=== PATIENT | female | born 1945 | race Caucasian/White ===

== ENCOUNTER → 2017-10-21 09:23 | Outpatient (CLI) | payer MEDICARE, SELFPAY ==
[2017-10-21 09:50] LABS: Hematocrit 36.9 % (36-46); Hemoglobin 13.2 g/dL (12.0-16.0); Mean Corpuscular HGB Conc 35.6 % (30-36); Mean Corpuscular Hemoglobin 35.1 PG (26-34); Mean Corpuscular Volume 98.4 fL (80-100); Platelet Count 104 X10^3/uL (150-400); Red Blood Cell Count 3.75 X10^6/uL (4.0-5.2); Red Cell Distribution Width 14.5 % (11.6-14.8)
[2017-10-21 09:53] LABS: Add Manual Diff / Slide Review YES; White Blood Cell Count 1.1 X10^3/uL (4.5-11.0)
[2017-10-21 10:08] LABS: Neutrophils Absolute Manual 242 /uL (3000-5900); Nucleated Red Blood Cells 2 #/Diff; Total Cells Counted 100
[2017-10-21 10:09] LABS: Morphology Comment Normal Morphology
--- NOTE | 2017-10-21 14:28 | PC.NURSE ---
Addendum entered by Niki Falk R.N. 10/22/17 08:56: Kelli responded to hold Ibrance till further notice and see Dr Acuna sooner. Pt has labs/ scans then visit with Dr Acuna on November 10 which will help determine effectiveness of Ibrance and continuation.Reviewed with Dr Acuna he would like to re-check CBC at what would be the beginning of the next cycle which would be October 30 a Thursday so November 02Thursday.Pt will see Dr Acuna the following week for full evaluation. Pt informed of plan and aware of neutropenia and precautions. Original Note: critical value noted and placed on Kelli's desk for review. Pt notified of critical result wbc 1.1 and is awaiting a return call with the plan. Question being: she is currently on Ibrance and has 3 days left on this cycle. Continue or discontinue? gcsf? Awaiting Kelli's input.
== END ==
PROVIDERS: Family Provider Family Medicine; PCP Family Medicine; Visit Provider Nurse Practitioner Gerontology
DX: C50.912 Malignant neoplasm of unspecified site of left female breast (principal)
CPT/HCPCS: 36415; 85025

== ENCOUNTER → 2017-11-02 12:52 | Outpatient (CLI) | payer MEDICARE, SELFPAY ==
[2017-11-02 13:09] LABS: Mean Corpuscular HGB Conc 35.1 % (30-36); Mean Corpuscular Hemoglobin 34.5 PG (26-34); Mean Corpuscular Volume 98.3 fL (80-100); Platelet Count 126 X10^3/uL (150-400); Red Blood Cell Count 3.77 X10^6/uL (4.0-5.2); Red Cell Distribution Width 14.9 % (11.6-14.8)
[2017-11-02 13:12] LABS: Add Manual Diff / Slide Review YES; White Blood Cell Count 1.2 X10^3/uL (4.5-11.0)
[2017-11-02 13:35] LABS: Prothrombin Time 21.4 SECONDS (10.1-12.7)
[2017-11-02 13:54] LABS: Neutrophils Absolute Manual 264 /uL (3000-5900); Nucleated Red Blood Cells 4 #/Diff; Total Cells Counted 50
[2017-11-02 13:56] LABS: Basophilic Stippling 1+; Polychromasia 1+; Schistocytes 1+
--- NOTE | 2017-11-02 15:50 | PC.NURSE ---
WBC is 1.2 today.PAN WASHER would like to hold Ibrance-pt was due to re-start.Will have CBC Thursday and if labs ok to restart Kelli will prescribe new RX-pt only has [address] Acuna 11/10
== END ==
PROVIDERS: Family Provider Family Medicine; PCP Family Medicine; Visit Provider Internal Medicine Hematology & Oncology
DX: C50.912 Malignant neoplasm of unspecified site of left female breast (principal); I82.409 Acute embolism and thrombosis of unspecified deep veins of unspecified lower extremity; Z51.81 Encounter for therapeutic drug level monitoring; Z79.01 Long term (current) use of anticoagulants
CPT/HCPCS: 36415; 85025; 85610

== ENCOUNTER → 2017-11-06 | Outpatient (CLI) | payer MEDICARE, SELFPAY ==
--- NOTE | 2017-11-06 09:40 | DI.NM.S_ITS ---
PROCEDURE: IN BONE SCAN WHOLE BODY RADIOPHARMACEUTICAL: 20.4 mCi Tc-99m MDP IV. INDICATIONS: BREAST CANCER TECHNIQUE: Delayed whole-body scintigrams were obtained approximately 3-4 hours after intravenous injection of radiotracer. Anterior and posterior views were acquired from vertex to feet. COMPARISON: [facility], CT, CT CHEST ABD PEL W CON, 11/06/2017, 11:21. [facility], CT, CHEST/ABDOMEN WITH CONTRAST, 08/20/2016, 10:15. [facility], [place], BONE SCAN WHOLE BODY, 03/16/2017, 11:34. [facility], [place], BONE SCAN WHOLE BODY, 11/22/2015, 11:21. FINDINGS: No areas of relative intense radiotracer uptake identified that would be suspicious for metastatic disease. Increased radiotracer uptake noted in the shoulders bilaterally, the knees bilaterally in the mid feet compatible with osteoarthritis. Subtle foci of increased radiotracer uptake identified in the cervical spine stable compared to prior examinations likely related to degenerative changes. No abnormal radiotracer uptake associated with the known T5 lytic lesion. No abnormal soft tissue activity. Activity in the kidneys is normal and symmetric. IMPRESSION: 1. Stable examination compared to 03/16/2017. 2. No evidence of new or active osseous metastatic disease. 3. Osteoarthritis. Dictated by: Maggy Hurtado MD, PhD on 11/06/2017 at 15:46 Approved by: Maggy Hurtado MD, PhD on 11/06/2017 at 15:50
--- NOTE | 2017-11-06 10:47 | DI.CT.S_ITS ---
PROCEDURE: CT CHEST ABD PEL W CON INDICATIONS: BREAST CANCER TECHNIQUE: After the administration of oral and intravenous contrast, 5 mm thick sections acquired from the lung apices to the symphysis. 5 mm coronal and sagittal reformats were performed, with additional 7 mm coronal MIP reformats through the lungs. For radiation dose reduction, the following was used: automated exposure control, adjustment of mA and/or kV according to patient size. COMPARISON: [facility], CT, PE STUDY (CTA CHEST), 11/15/2015, 13:55. [facility], [place], [place] BONE SCAN WHOLE BODY, 11/06/2017, 13:50. [facility], CT, CHEST/ABDOMEN WITH CONTRAST, 08/20/2016, 10:15. [facility], CT, CHEST/ABD/PEL WITH CONTRAST, 04/23/2016, 10:49. FINDINGS: Image quality: Excellent. CHEST: Lungs and pleura: There is progressive decrease in size of multiple bilateral pulmonary nodules. A construction representative left lower lobe nodule measures 0.7 x 0.6 cm compared to 1.1 x 0.8 cm previously. A bandlike right perihilar opacity appears similar to the recent prior studies. No definite new mass lesions. No pleural effusions or pneumothorax. The trachea and central airways appear patent. Mediastinum: Heart size is normal. No pericardial effusion. Thoracic aorta and central pulmonary arteries are normal in size. Ill-defined right hilar soft tissue appears similar to the prior studies. A right paratracheal node measuring up to 1.2 cm in short axis also appear similar to the recent prior studies. Esophagus is normal in caliber. There is a small hiatal hernia. Chest wall: There is marked decrease in size of the previously identified left axillary mass which now measures up to 2.7 x 0.9 cm. There is internal high attenuation compatible with indistinct calcification. ABDOMEN: Solid organs: Liver is normal in size and enhancement. Gallbladder is distended without calcified gallstones. Biliary system is non dilated. Pancreas enhances normally. Spleen is normal in size and enhancement. No adrenal nodules. Kidneys demonstrate normal size and enhancement, without hydronephrosis. Peritoneum and bowel: There is a curvilinear lucency along the gastric wall anteriorly consistent with gas bubble artifact. Bowel loops demonstrate normal wall thickness and caliber. There is colonic diverticulosis without acute diverticulitis. No free fluid or air. Nodes and vessels: No retroperitoneal or mesenteric adenopathy by size criteria. Aorta and inferior vena cava are normal in size. Miscellaneous: No ventral hernias. PELVIS: Genitourinary: Bladder wall thickness is normal. There are multiple calcified fibroids redemonstrated within the uterus. Miscellaneous: No inguinal hernias or adenopathy. Bones: A lytic lesion is redemonstrated within the T5 vertebral body involving the left neuroforamen. There are increased sclerotic margins and progressive decrease in size of the associated soft tissue mass which now measures approximately 2.0 x 1.3 cm in transverse dimension. No vertebral body compression fractures. IMPRESSION: 1. Progressive decrease in size of multiple bilateral pulmonary nodules and T5 vertebral body mass as well as marked decrease in size of a left axillary mass compatible with response to therapy. 2. Stable right hilar soft tissue and right paratracheal lymph node compared to recent prior studies. 3. No definite evidence of new metastatic disease. Dictated by: Felice Givens M.D. on 11/06/2017 at 14:54 Approved by: Felice Givens M.D. on 11/06/2017 at 15:30
== END ==
LOC: RAD 09:38
PROVIDERS: Family Provider Family Medicine; PCP Family Medicine; Visit Provider Internal Medicine Hematology & Oncology
DX: C50.912 Malignant neoplasm of unspecified site of left female breast (principal); Z53.9 Procedure and treatment not carried out, unspecified reason
CPT/HCPCS: 71260; 74177; 78306; A9503; Q9967

== ENCOUNTER → 2017-11-17 09:17 | Outpatient (CLI) | payer MEDICARE, SELFPAY ==
[2017-11-17 09:36] LABS: Hematocrit 36.4 % (36-46); Hemoglobin 12.5 g/dL (12.0-16.0); Mean Corpuscular HGB Conc 34.3 % (30-36); Mean Corpuscular Hemoglobin 34.2 PG (26-34); Mean Corpuscular Volume 99.8 fL (80-100); Platelet Count 144 X10^3/uL (150-400); Red Blood Cell Count 3.64 X10^6/uL (4.0-5.2)
[2017-11-17 09:38] LABS: Add Manual Diff / Slide Review YES; White Blood Cell Count 1.5 X10^3/uL (4.5-11.0)
--- NOTE | 2017-11-17 09:38 | PC.NURSE ---
cv WBC 1.5 per [facility] in Lab. Triage notified
[2017-11-17 09:57] LABS: Neutrophils Absolute Manual 540 /uL (3000-5900); Total Cells Counted 100
[2017-11-17 09:58] LABS: Anisocytosis 2+
--- NOTE | 2017-11-17 11:04 | PC.NURSE ---
pt remains neutropenic with WBC of 1.5 and ANC of 540. Dr Acuna notified. Instructed pt to hold Ibrance. Recheck CBC in about 2 weeks. Once ANC is >1000, pt may resume Ibrance but at a lower dose of 100 mg PO daily.
== END ==
PROVIDERS: Family Provider Family Medicine; PCP Family Medicine; Visit Provider Internal Medicine Hematology & Oncology
DX: C50.912 Malignant neoplasm of unspecified site of left female breast (principal)
CPT/HCPCS: 36415; 85025

== ENCOUNTER → 2017-12-01 09:31 | Outpatient (CLI) | payer MEDICARE, SELFPAY ==
[2017-12-01 09:55] LABS: Hematocrit 35.5 % (36-46); Hemoglobin 12.3 g/dL (12.0-16.0); Mean Corpuscular HGB Conc 34.6 % (30-36); Mean Corpuscular Volume 98.2 fL (80-100); Platelet Count 123 X10^3/uL (150-400); Red Blood Cell Count 3.62 X10^6/uL (4.0-5.2)
[2017-12-01 09:58] LABS: Add Manual Diff / Slide Review YES; White Blood Cell Count 1.8 X10^3/uL (4.5-11.0)
[2017-12-01 10:00] LABS: INR 2.3 (0.9-1.3); Prothrombin Time 24.9 SECONDS (10.1-12.7)
--- NOTE | 2017-12-01 10:08 | PC.NURSE ---
Critical lab result WBC 1.8 received from lab. pediatric psychiatrist aware.
[2017-12-01 10:45] LABS: Neutrophils Absolute Manual 432 /uL (3000-5900); Total Cells Counted 50
[2017-12-01 10:51] LABS: Anisocytosis 1+
[2017-12-01 10:52] LABS: Polychromasia 1+
== END ==
PROVIDERS: Family Provider Family Medicine; PCP Family Medicine; Visit Provider Internal Medicine Hematology & Oncology
DX: C50.912 Malignant neoplasm of unspecified site of left female breast (principal); I82.409 Acute embolism and thrombosis of unspecified deep veins of unspecified lower extremity; Z79.01 Long term (current) use of anticoagulants
CPT/HCPCS: 36415; 85025; 85610

== ENCOUNTER → 2017-12-22 08:52 | Outpatient (CLI) | payer MEDICARE, SELFPAY ==
[2017-12-22 09:36] LABS: Hematocrit 31.4 % (36-46); Hemoglobin 10.9 g/dL (12.0-16.0); Mean Corpuscular HGB Conc 34.7 % (30-36); Mean Corpuscular Hemoglobin 33.5 PG (26-34); Mean Corpuscular Volume 96.5 fL (80-100); Red Blood Cell Count 3.26 X10^6/uL (4.0-5.2); Red Cell Distribution Width 14.9 % (11.6-14.8); White Blood Cell Count 11.2 X10^3/uL (4.5-11.0)
[2017-12-22 09:38] LABS: Add Manual Diff / Slide Review YES
[2017-12-22 09:39] LABS: Platelet Count 43 X10^3/uL (150-400)
--- NOTE | 2017-12-22 10:17 | PC.NURSE ---
Plt count 43. Pt is on day 15 of her 21 day cycle. Kelli would like pt to stop this cycle. She has labs and a provider visit around the time she is to restart her next cycle of Ibrance. Pt aware to hold off starting next cycle until she has labs and provider visit first. this is already scheduled for Jan 05.
[2017-12-22 10:37] LABS: Neutrophils Absolute Manual 112 /uL (3000-5900); Nucleated Red Blood Cells 3 #/Diff; Total Cells Counted 100
[2017-12-22 10:45] LABS: Smudge Cells 1+
[2017-12-22 10:46] LABS: Anisocytosis 2+; Polychromasia 1+
--- NOTE | 2017-12-23 13:52 | ONC.NAV ---
Description: [employer] co-pay assistance Activity: Called [employer] and applied for patient's co-pay assistance for [employer]. She still has $595.04 in her [employer] trupti, however that will run out with her next month's order. Patient was approved for a $5000 trupti as a result of this application today. Called pt to relay the news. Called [facility] and provided the pharmacy card information: ID#[id number] BIN#[id number] Group#[id number] PCN#[id number] Effective dates: 12/23/17-12/23/18
== END ==
PROVIDERS: Internal Medicine Hematology & Oncology; Family Provider Family Medicine; PCP Family Medicine; Visit Provider Nurse Practitioner Gerontology
DX: C50.912 Malignant neoplasm of unspecified site of left female breast (principal)
CPT/HCPCS: 36415; 85025

== ENCOUNTER 2018-01-05 11:56 | Inpatient (IN) | payer MEDICARE, SELFPAY ==
[2018-01-05] VITALS (16 sets, daily range): BP systolic 122–165; BP diastolic 60–86; PULSE 86–119; RESP 12–22; TEMP 36.1–37.6; O2SAT 90–96; BMI 56.1
--- NOTE | 2018-01-05 | DI.RAD.S_ITS ---
PROCEDURE: XR CHEST 2V INDICATIONS: cOUGH fEVER TECHNIQUE: 2 views of the chest were acquired. COMPARISON: [facility], CT, CT CHEST ABD PEL W CON, 11/06/2017, 11:21. FINDINGS: Surgical changes and devices: None. Lungs and pleura: No pleural effusions or pneumothorax. Lungs show diffuse, patchy radiodensities bilaterally, right greater than left. Mediastinum: Mediastinal contours are normal. Heart size is normal. Bones and chest wall: No suspicious bony abnormalities. Calcifications overlies the right humeral head laterally. IMPRESSION: 1. Bilateral patchy airway disease, indeterminate. Atypical pneumonia suspect. Dictated by: Mikie Carlson M.D. on 01/05/2018 at 13:32 Approved by: Mikie Carlson M.D. on 01/05/2018 at 13:35
[2018-01-05] MEDS: levoFLOXacin 750 MG/150 ML PIGGYBACK 100 MG IV (14:19)
[2018-01-05] MEDS: SODIUM CHLORIDE 0.9% 1,000 ML 42 ML IV (14:20)
--- NOTE | 2018-01-05 15:07 | PC.ADMIT ---
Admission Note: Patient arrived to room 103 from oncology clinic at 1230 via wheelchair. Walked from wheelchair to bed, using FWW (baseline). SOB with exertion, oxygen sats 94% on 2L NC. Lungs clear but decreased. Reports coughing up yellow sputum at home but none since arrival to clinic. Oriented to room and to call light/tv/bed controls. Call light within reach. 1st unit PRBCs infusing at this time. Dr. Dunlap in to see patient. The patient,Camille Mccollum,72 y/o, was given written information regarding hospital policies, unit procedures and contact persons. Patient's smoking status: Never smoker. Vital Signs - 8 hr 01/05/18 12:30 01/05/18 14:33 01/05/18 14:49 Temperature 98.9 F 99.7 F H 98.3 F Pulse Rate 119 H 104 H 95 H Respiratory Rate 15 15 16 Blood Pressure 165/86 H 134/72 H 141/60 H Pulse Oximetry 95
[2018-01-05] MEDS: OXYCODONE/ACETAMINOPHEN 5/325 TABLET 1 TAB PO (16:10)
--- NOTE | 2018-01-05 16:20 | P.HP_ITS ---
History of Present Illness Date Patient Seen: 01/05/18 Time Patient Seen: 13:12 Chief complaint: SEPSIS, RESP FAILURE Narrative: THIS VERY PLEASANT 72-YEAR-OLD FEMALE WHO WAS ADMITTED FROM THE ONCOLOGY CLINIC WAS BEING FOLLOWED UP FOR CA OF THE BREAST WHICH HAS BEEN DIAGNOSED 2 YEARS AGO SHE DID NOT HAVE ANY SURGERY SHE WAS TREATED WITH HORMONAL THERAPY APPARENTLY SHE HAS NOT BEEN WELL OVER THE LAST FEW DAYS BUT SHE DID NOT WANT TO COME TO THE ER SHE SHE WAS ANYWAY GOING TO SEE THE DOCTOR IN THE ONCOLOGY CLINIC AND SO SHE WAITED OF THAT AND SHE DOES COMPLAIN OF COUGH WITH SOME BLOOD DRAINING SOME PURULENT SPUTUM DOES NOT COMPLAIN OF ANY SHORTNESS OF BREATH OR CHEST PAIN IN THE CLINIC DOCTOR AND OTHER LABS AND A CBC WAS VERY ABNORMAL WITH A WHITE COUNT OF [id number] AND PLATELET COUNTS OF 10 SHE DENIES ANY FEVER CHILLS OR RIGORS SHE LIVES ALONE AND NEIGHBORS THAT HELP HER Patient History Medical History Anxiety (Acute) Breast cancer, stage 4 (Acute) DVT (deep venous thrombosis) (Acute) Surgical History History of tonsillectomy Family & Social History Family History: Reviewed 01/05/18 by Fernando Vargas MD Social History: household members other Prior Living Arrangements House Safety & Behavioral: Feels Safe in Current Yes Environment Been Physically Hurt or No Threatened By a Person Suicidal Ideation Description None Suicide Plan Description No Plan Tobacco & Substance use: Smoking Status Never smoker alcohol intake never Substance Use Type does not use Meds Home Medications Medication Instructions Recorded Confirmed Type cholecalciferol (vitamin D3) 1,000 unit PO QDAY #0 tab 02/13/16 01/05/18 History [Vitamin D3] biotin 1 mg PO QAM #0 05/28/16 01/05/18 History letrozole [Femara] 2.5 mg PO QDAY #90 tab 09/14/17 01/05/18 Rx lorazepam 1 mg PO BID PRN 11/10/17 01/05/18 History palbociclib [Ibrance] 100 mg PO DAILY 11/10/17 01/05/18 History polyethylene glycol 3350 [Miralax] 17 gm PO QDAYP PRN #120 gm 11/26/17 01/05/18 Rx morphine [MS Contin] 15 mg PO BID #60 tab 12/22/17 01/05/18 Rx oxycodone-acetaminophen [Percocet] 1 tab PO Q6HP PRN #60 tab 12/22/17 01/05/18 Rx warfarin [Coumadin] 5 mg PO DAILY 01/05/18 01/05/18 History Allergies Allergy/AdvReac Type Severity Reaction Status Date / Time Penicillins [PENICILLINS] Allergy Unknown Verified 11/10/17 13:32 Sulfa (Sulfonamide Allergy Unknown Verified 11/10/17 13:33 Antibiotics) [SULFA (SULFONAMIDE ANTIBIOTICS)] BANDAID AdvReac Unknown Uncoded 11/10/17 13:33 Review of Systems Review of Systems All systems reviewed & are unremarkable except as noted in HPI and below Exam Vital Signs (past 8 hours): - 01/05/18 12:30 01/05/18 14:33 01/05/18 14:49 Temperature 98.9 F 99.7 F H 98.3 F Pulse Rate 119 H 104 H 95 H Respiratory Rate 15 15 16 Blood Pressure 165/86 H 134/72 H 141/60 H Pulse Oximetry 95 01/05/18 16:00 Temperature 99.7 F H Pulse Rate 93 H Respiratory Rate 20 Blood Pressure 143/77 H Pulse Oximetry 96 Oxygen Flow Rate 2 Const General: cooperative, healthy appearing and other (MORBID OBESITY) Nutritional Appearance: overweight [facility] Head: normal to inspection and normocephalic Ears: hearing grossly normal bilaterally Nose: external nose normal Face and sinus: normal facial exam Mouth: oral mucosae normal Eyes General: appearance normal, both eyes and all related structures Sclera: sclerae normal Pupils: PERRL EOM: EOM intact bilaterally Neck Neck: normal visual inspection and full ROM Resp Effort & Inspection: normal respiratory effort and able to speak in complete sentences Auscultation: clear to auscultation bilaterally Cardio Palpation: normal PMI Rate: tachycardic Rhythm: regular rhythm Heart Sounds: S1 normal and S2 normal GI Inspection: normal to inspection Palpation: soft Auscultation: normal bowel sounds Back/Spine/Pelvis Back: normal to inspection Skin General: no rashes or lesions noted Neuro General: alert, awake and oriented x3 Cranial Nerves: CN's II-XI intact bilaterally Cognition: normal cognition Speech: speech normal Motor: muscle tone normal throughout Sensory Exam: no sensory deficits noted Extrem General: normal to inspection Right upper extremity: normal to inspection Left upper extremity: normal to inspection Right lower extremity: normal to inspection Left lower extremity: normal to inspection Psych Mood: congruent mood Affect: normal affect Thought Process: normal Objective Labs Labs: Laboratory Results - last 24 hr 01/05/18 01/05/18 09:55 13:00 Nasal Screen MRSA (PCR) Negative for mrsa Blood Type B Negative Antibody Screen Negative Crossmatch See Detail Assessment & Plan Plan: Assessment/Plan Narrative: 1. SEPSIS SYNDROME LEVAQUIN IVF NEEDED 2. LEUKOCYTOSIS MOST LIKELY LEUKEMOID REACTION WILL MONITOR oNCOLOGY AWARE 3. THROMBOCYTOPENIA SEVERE pLATELETS TRANSFUSION PER oNC rECOMMENDATION 4. POSSIBLE PNEUMONIA lEVAQUIN o2 5. ANEMIA SEVERE HOLD COUMADIN PRBC TRANSFUSION 6. Ca OF THE BREAST treatment per Oncology Quality VTE Deep Vein Thrombosis/Pulmonary Embolism Present on Admission: No
[2018-01-05] MEDS: MORPHINE 2 MG/ML INJ IV (18:28)
[2018-01-05] MEDS: MORPHINE 4 MG/ML INJ IV (19:15)
[2018-01-05] MEDS: MORPHINE ER 30 MG TABLET PO (20:17)
[2018-01-05] MEDS: LORazepam 0.5 MG TABLET 1 MG PO (20:19)
[2018-01-05] MEDS: HYDROMORPHONE 2 MG INJ 1 MG IV (23:02)
[2018-01-06] VITALS (12 sets, daily range): BP systolic 139–155; BP diastolic 65–85; PULSE 61–95; RESP 15–22; TEMP 35.8–37.7; O2SAT 88–96
[2018-01-06] MEDS: HYDROMORPHONE 2 MG INJ 1 MG IV ×2 (00:31→05:42)
[2018-01-06] MEDS: MORPHINE 2 MG/ML INJ IV ×3 (02:15→21:00)
[2018-01-06] MEDS: MORPHINE 4 MG/ML INJ IV (04:24)
[2018-01-06 05:21] LABS: BUN Creatinine Ratio 16.7 (6-22); Blood Urea Nitrogen 15 mg/dL (7-17); Calcium 9.1 mg/dL (8.4-10.2); Carbon Dioxide 31 mmol/L (22-32); Chloride 100 mmol/L (98-107); Estimated Glomerular Filt Rate > 60.0 mL/min (>60); Glucose 126 mg/dL (80-110); HEMOLYSIS < 15 (0-50); Potassium 4.2 mmol/L (3.4-5.1); Sodium 138 mmol/L (137-145)
[2018-01-06 05:40] LABS: Hematocrit 28.5 % (36-46); Hemoglobin 9.5 g/dL (12.0-16.0); Mean Corpuscular HGB Conc 33.3 % (30-36); Mean Corpuscular Hemoglobin 29.4 PG (26-34); Mean Corpuscular Volume 88.5 fL (80-100); Red Blood Cell Count 3.22 X10^6/uL (4.0-5.2); Red Cell Distribution Width 19.7 % (11.6-14.8)
[2018-01-06] MEDS: PANTOPRAZOLE 20 MG TABLET PO (05:42)
[2018-01-06 05:53] LABS: White Blood Cell Count 76.6 X10^3/uL (4.5-11.0)
[2018-01-06 05:54] LABS: Add Manual Diff / Slide Review YES; Platelet Count 50 X10^3/uL (150-400)
[2018-01-06 06:15] LABS: Neutrophils Absolute Manual 0 /uL (3000-5900); Nucleated Red Blood Cells 2 #/Diff; Total Cells Counted 100
[2018-01-06 06:18] LABS: Anisocytosis 2+; Morphology Comment PLATELETS DECREASED
--- NOTE | 2018-01-06 06:32 | PC.NURSE ---
Patient continues to c/o much back pain, rates 7-10/10 Given IV morphine and IV Dilaudid per EMAR. Largely mouth breather, Spo2 decreased to 86% while sleeping, placed 2-4L NC in mouth, sats improved. VSS,
--- NOTE | 2018-01-06 09:15 | PM.HP.1 ---
History of Present Illness Chief complaint: SEPSIS, RESP FAILURE Narrative: THIS VERY PLEASANT 72-YEAR-OLD FEMALE WHO WAS ADMITTED FROM THE ONCOLOGY CLINIC WAS BEING FOLLOWED UP FOR CA OF THE BREAST WHICH HAS BEEN DIAGNOSED 2 YEARS AGO SHE DID NOT HAVE ANY SURGERY SHE WAS TREATED WITH HORMONAL THERAPY APPARENTLY SHE HAS NOT BEEN WELL OVER THE LAST FEW DAYS BUT SHE DID NOT WANT TO COME TO THE ER SHE said SHE WAS ANYWAY GOING TO SEE THE DOCTOR IN THE ONCOLOGY CLINIC AND SO SHE WAITED OF THAT AND SHE DOES COMPLAIN OF COUGH WITH SOME BLOOD DRAINING SOME PURULENT SPUTUM DOES NOT COMPLAIN OF ANY SHORTNESS OF BREATH OR CHEST PAIN IN THE CLINIC DOCTOR AND OTHER LABS AND A CBC WAS VERY ABNORMAL WITH A WHITE COUNT OF [id number] AND PLATELET COUNTS OF 10 SHE DENIES ANY FEVER CHILLS OR RIGORS SHE LIVES ALONE AND NEIGHBORS THAT HELP HER Patient History Medical History Anxiety (Acute) Breast cancer, stage 4 (Acute) DVT (deep venous thrombosis) (Acute) Surgical History History of tonsillectomy Family & Social History Family History: Reviewed 01/05/18 by Fernando Vargas MD Social History: household members other Prior Living Arrangements House Safety & Behavioral: Feels Safe in Current Yes Environment Been Physically Hurt or No Threatened By a Person Suicidal Ideation Description None Suicide Plan Description No Plan Tobacco & Substance use: Smoking Status Never smoker alcohol intake never Substance Use Type does not use Meds Home Medications Medication Instructions Recorded Confirmed Type cholecalciferol (vitamin D3) 1,000 unit PO QDAY #0 tab 02/13/16 01/05/18 History [Vitamin D3] biotin 1 mg PO QAM #0 05/28/16 01/05/18 History letrozole [Femara] 2.5 mg PO QDAY #90 tab 09/14/17 01/05/18 Rx lorazepam 1 mg PO BID PRN 11/10/17 01/05/18 History palbociclib [Ibrance] 100 mg PO DAILY 11/10/17 01/05/18 History polyethylene glycol 3350 [Miralax] 17 gm PO QDAYP PRN #120 gm 11/26/17 01/05/18 Rx morphine [MS Contin] 15 mg PO BID #60 tab 12/22/17 01/05/18 Rx oxycodone-acetaminophen [Percocet] 1 tab PO Q6HP PRN #60 tab 12/22/17 01/05/18 Rx warfarin [Coumadin] 5 mg PO DAILY 01/05/18 01/05/18 History Allergies Allergy/AdvReac Type Severity Reaction Status Date / Time Penicillins [PENICILLINS] Allergy Unknown Verified 11/10/17 13:32 Sulfa (Sulfonamide Allergy Unknown Verified 11/10/17 13:33 Antibiotics) [SULFA (SULFONAMIDE ANTIBIOTICS)] BANDAID AdvReac Unknown Uncoded 11/10/17 13:33 Exam Vital Signs (past 8 hours): - 01/06/18 02:00 01/06/18 04:28 01/06/18 07:41 Temperature 96.5 F L 100 F H Pulse Rate 93 H 95 H Respiratory Rate 20 22 Blood Pressure 140/66 H 155/65 H Pulse Oximetry 94 96 95 Oxygen Delivery Method Nasal Cannula Oxygen Flow Rate 4 Objective Labs Result Diagrams: 01/07/18 07:51 01/07/18 07:51 Labs: Laboratory Results - last 24 hr 01/05/18 01/05/18 01/06/18 09:55 13:00 04:50 WBC 76.6 H* RBC 3.22 L Hgb 9.5 L Hct 28.5 L MCV 88.5 D MCH 29.4 MCHC 33.3 RDW 19.7 H Plt Count 50 L Neut % (Auto) Not Reportable Lymph % (Auto) Not Reportable [place] % (Auto) Not Reportable Eos % (Auto) Not Reportable Baso % (Auto) Not Reportable Total Counted 100 Lymphocytes % (Manual) 16.0 L Atypical Lymphs % 68.0 H Promyelocytes % 6.0 H Blast Cells % 10.0 H Neutrophils # (Manual) 0 L Nucleated RBCs 2 H Differential Comment Platelets decreased RBC Morphology Not Reportable Anisocytosis 2+ H Sodium Potassium Chloride Carbon Dioxide BUN Creatinine Estimated GFR BUN/Creatinine Ratio Glucose Calcium Nasal Screen MRSA (PCR) Negative for mrsa Blood Type B Negative Antibody Screen Negative Crossmatch See Detail 01/06/18 04:50 WBC RBC Hgb Hct MCV MCH MCHC RDW Plt Count Neut % (Auto) Lymph % (Auto) [place] % (Auto) Eos % (Auto) Baso % (Auto) Total Counted Lymphocytes % (Manual) Atypical Lymphs % Promyelocytes % Blast Cells % Neutrophils # (Manual) Nucleated RBCs Differential Comment RBC Morphology Anisocytosis Sodium 138 Potassium 4.2 Chloride 100 Carbon Dioxide 31 BUN 15 Creatinine 0.90 Estimated GFR > 60.0 BUN/Creatinine Ratio 16.7 Glucose 126 H Calcium 9.1 Nasal Screen MRSA (PCR) Blood Type Antibody Screen Crossmatch Quality VTE Deep Vein Thrombosis/Pulmonary Embolism Present on Admission: No
[2018-01-06] MEDS: LETROZOLE 2.5 MG TABLET PO (09:36)
[2018-01-06] MEDS: CHOLECALCIFEROL (VITAMIN D3) 1,000 UNIT TABLET 1000 UNIT PO (09:36)
[2018-01-06] MEDS: DOCUSATE 100 MG CAPSULE PO ×2 (09:36→20:14)
[2018-01-06] MEDS: MORPHINE ER 30 MG TABLET PO ×2 (09:36→20:14)
[2018-01-06] MEDS: OXYCODONE/ACETAMINOPHEN 7.5/325 TABLET 1 TAB PO ×2 (09:38→16:43)
--- NOTE | 2018-01-06 11:01 | CM.DANOTE ---
Addendum entered by Dilcia Morris R.N. 01/06/18 15:18: DCP Cont: Spoke to DESTIN Little at [facility]. Has a cousin, Tracee, if any questions. Her phone number is [phone]. Patient has been getting chemo, is questionable if patient will be able to go down to [place] to get treatment. DCP will continue to monitor condition, and if alf may be appropriate. Original Note: DCP: Case received, EMR reviewed and met with patient. Patient currently sleeping, but wrote name of site planner on white board in room. DCP template completed with current information available. Pt. is a 72 year old female who admitted yesterday morning to the care of the hospitalist team. PCP: Dr. Ventura. Payer: confirmed: Medicare Patient carries a diagnosis of Sepsis, Resp. Failure. Was sent over for admit yesterday from oncology. Patient lives alone in home, but has neighbors that are supportive. P: To be determined. May qualify for skilled if patient is here over 3 days. Will continue to evaluate. Dilcia Morris RN/[employer]
[2018-01-06] MEDS: levoFLOXacin 750 MG/150 ML PIGGYBACK 100 MG IV (12:53)
[2018-01-06] MEDS: HYDROMORPHONE 1 MG INJ IV ×3 (13:00→16:44)
[2018-01-06] MEDS: SODIUM CHLORIDE 0.9% 1,000 ML 42 ML IV (13:15)
--- NOTE | 2018-01-06 15:00 | ONC.NAV ---
Description: Check-in while inpt Activity: Met with pt and her cousin, Tracee, who was with her at bedside. Pt was found to be alert and oriented, however she was clearly uncomfortable, reported that she's been having a lot of pain, and was very anxious. She's unclear at this point what the next steps will be regarding her treatment plan and what to expect. [employer]PL[employer] explained that we are watching the notes and coordinating with staff on the floor, and that they are discussing potential plans for rehab after this hospital stay, if she continues to remain weak/fatigued and needing long term care. Her cousin, Tracee, lives in [place], and verbalized that she is available to assist pt with care coordination needs. Pt's DPOA is currently out on a fishing boat, and is unavailable, however, pt remains decisional at this time. [employer] met with Leandra, cyber policy and strategy planner, and discussed what the current plans are that are being considered. One plan that we have heard is that pt may need [place] go [place] for treatment, however no one at this point is clear why that would be necessary. AIRPLANE [employer] P[employer] explained that pt has very high anxiety as her baseline, and that she would not be able to drive herself to [place], nor does she have a support system that would be able to do that either. [employer]PLANE [employer] is encouraging of a local plan for treatment, as pt does have a neighbor and cousin that are local and can assist her. This [employer] can also arrange for local transportation for her to her visits through the [employer]. Plan: Monitor. Will plan to check-back in with patient again tomorrow.
--- NOTE | 2018-01-06 15:02 | PM.PN.1 ---
Subjective Date Patient Seen: 01/06/18 Time Patient Seen: 12:03 Interval history: Admitted from oncology clinic and because of the cough as hemoptysis found to have a white count of [id number] platelets were 10 She has underlying CA of the breast for which she gets on hormone therapy Chest x-ray some infiltrates /possible pneumonia and she is on Levaquin No new symptoms other than severe pain in the back due to her meds from [place] breasts Exam Vital Signs (past 8 hours): - 01/06/18 07:41 01/06/18 08:30 01/06/18 11:00 Temperature 100 F H 97.7 F Pulse Rate 95 H 86 Respiratory Rate 22 18 Blood Pressure 155/65 H 139/69 H Pulse Oximetry 95 95 91 Oxygen Delivery Method Nasal Cannula Oxygen Flow Rate 2 Const General: cooperative, healthy appearing and comfortable Nutritional Appearance: overweight Orientation: alert, awake and oriented x3 HENMT Head: normal to inspection, normocephalic and atraumatic Ears: hearing grossly normal bilaterally Nose: external nose normal Face and sinus: normal facial exam Eyes Eyelids: eyelids normal Conjunctivae: conjunctivae normal Sclera: sclerae normal Pupils: PERRL EOM: EOM intact bilaterally Neck Neck: normal visual inspection Thyroid: thyroid normal Resp Effort & Inspection: normal respiratory effort and able to speak in complete sentences Auscultation: clear to auscultation bilaterally Cardio Rate: regular rate Rhythm: regular rhythm Heart Sounds: S1 normal and S2 normal GI Inspection: normal to inspection Palpation: soft Back/Spine/Pelvis Back: normal to inspection Skin General: no rashes or lesions noted Neuro General: alert, awake and oriented x3 Cranial Nerves: CN's II-XI intact bilaterally Cognition: normal cognition Speech: speech normal Motor: muscle tone normal throughout Extrem General: normal to inspection Psych Appearance: grossly normal Mood: congruent mood Affect: normal affect Attitude: cooperative Thought Process: normal Thought Content: normal Judgment: judgment good Objective Labs Result Diagrams: 01/06/18 04:50 01/06/18 04:50 Labs: Laboratory Results - last 24 hr 01/05/18 01/05/18 01/06/18 09:55 13:00 04:50 WBC 76.6 H* RBC 3.22 L Hgb 9.5 L Hct 28.5 L MCV 88.5 D MCH 29.4 MCHC 33.3 RDW 19.7 H Plt Count 50 L Neut % (Auto) Not Reportable Lymph % (Auto) Not Reportable [place] % (Auto) Not Reportable Eos % (Auto) Not Reportable Baso % (Auto) Not Reportable Total Counted 100 Lymphocytes % (Manual) 16.0 L Atypical Lymphs % 68.0 H Promyelocytes % 6.0 H Blast Cells % 10.0 H Neutrophils # (Manual) 0 L Nucleated RBCs 2 H Differential Comment Platelets decreased RBC Morphology Not Reportable Anisocytosis 2+ H Sodium Potassium Chloride Carbon Dioxide BUN Creatinine Estimated GFR BUN/Creatinine Ratio Glucose Calcium Nasal Screen MRSA (PCR) Negative for mrsa Blood Type B Negative Antibody Screen Negative Crossmatch See Detail 01/06/18 04:50 WBC RBC Hgb Hct MCV MCH MCHC RDW Plt Count Neut % (Auto) Lymph % (Auto) [place] % (Auto) Eos % (Auto) Baso % (Auto) Total Counted Lymphocytes % (Manual) Atypical Lymphs % Promyelocytes % Blast Cells % Neutrophils # (Manual) Nucleated RBCs Differential Comment RBC Morphology Anisocytosis Sodium 138 Potassium 4.2 Chloride 100 Carbon Dioxide 31 BUN 15 Creatinine 0.90 Estimated GFR > 60.0 BUN/Creatinine Ratio 16.7 Glucose 126 H Calcium 9.1 Nasal Screen MRSA (PCR) Blood Type Antibody Screen Crossmatch Assessment & Plan Plan: Assessment/Plan Narrative: 1. Anemia and the hemoglobin dropped from 13-8 and requiring blood transfusion posttransfusion is 9.5 2. Thrombocytopenia platelets of 10 posttransfusion the platelets of 50 3.Leukocytosis of almost leukemoid reaction initially 100 K come down to 75 K 4. 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 ca of the breast on no hormone therapy Oncology Dr. Truman woodruff. will be following Time Spent With Patient Time with patient: 25 - 35 minutes Quality VTE Deep Vein Thrombosis/Pulmonary Embolism Present on Admission: No
--- NOTE | 2018-01-06 16:28 | CM.DPC ---
DCP Cont: DESTIN Little at [facility] stated that patient will be able to get her chemo treatment here at [facility], as Dr. Kapoor will accept her insurance. P: DCP will continue to assess, and plan, as skilled may be an option for patient. Dilcia Morris RN/Fishing Vessel Mate
[2018-01-06] MEDS: LORazepam 0.5 MG TABLET 1 MG PO (19:37)
[2018-01-06] MEDS: MORPHINE PCA 30 MG/30 ML PCA.VIAL IV (22:16)
[2018-01-07] VITALS (13 sets, daily range): BP systolic 99–137; BP diastolic 48–82; PULSE 97–110; RESP 16–22; TEMP 36.6–37.6; O2SAT 87–985
--- NOTE | 2018-01-07 01:31 | PC.NURSE ---
Addendum entered by Jovana Ji R.N. 01/07/18 06:44: Has slept at intervals. Continuing to need frequent cueing to use CYLINDER PRESS OPERATOR APPRENTICE. Did use 24mg of Morphine this shift. States headache is nearly resolved. Original Note: Addendum entered by Jovana Ji R.N. 01/07/18 03:35: States back pain is now 5/10; has used 18mg Morphine so far this shift. Needs continued reminders to use CYLINDER PRESS OPERATOR APPRENTICE. Also complains of headache so medicated with Tylenol. Coleen bed tilted to change position but prefers to mainly lie on back. Original Note: Patient is alert and oriented except to year and age. Breath sounds with inspiratory crackles in right lobes. On oxygen at 4L/min per NC with sat of 92%. HRR. Denies nausea. BT present and abdomen is soft. Voiding on BSC; denies dysuria, frequency, urgency or incontinence. Requires 2 assist + walker to get OOB. Complaining of mid upper back pain which is sharp and uncontrolled but not remembering to use CYLINDER PRESS OPERATOR APPRENTICE stating I'm too focused on the pain. Stayed with patient for past hour letting her know when CYLINDER PRESS OPERATOR APPRENTICE is available to use and now appears more comfortable although still with occasional moan. Wearing bilateral SCD's. Fall risk score is high and bed alarm is activated.
[2018-01-07] MEDS: ACETAMINOPHEN 325 MG TABLET 650 MG PO (03:29)
[2018-01-07] MEDS: MORPHINE PCA 30 MG/30 ML PCA.VIAL IV ×3 (06:34→22:13)
[2018-01-07] MEDS: PANTOPRAZOLE 20 MG TABLET PO (06:36)
[2018-01-07 08:17] LABS: Hematocrit 27.9 % (36-46); Hemoglobin 9.2 g/dL (12.0-16.0); Mean Corpuscular HGB Conc 32.8 % (30-36); Mean Corpuscular Hemoglobin 29.1 PG (26-34); Mean Corpuscular Volume 88.7 fL (80-100); Platelet Count 40 X10^3/uL (150-400); Red Blood Cell Count 3.15 X10^6/uL (4.0-5.2); Red Cell Distribution Width 19.5 % (11.6-14.8)
[2018-01-07 08:22] LABS: Add Manual Diff / Slide Review YES; White Blood Cell Count 87.8 X10^3/uL (4.5-11.0)
[2018-01-07 08:41] LABS: INR 3.2 (0.9-1.3); Prothrombin Time 35.3 SECONDS (10.1-12.7)
[2018-01-07 08:44] LABS: PTT Partial Thromboplastin Tim 31 SECONDS (26.4-36.2)
[2018-01-07] MEDS: CHOLECALCIFEROL (VITAMIN D3) 1,000 UNIT TABLET 1000 UNIT PO (08:49)
[2018-01-07] MEDS: LETROZOLE 2.5 MG TABLET PO (08:49)
[2018-01-07] MEDS: DOCUSATE 100 MG CAPSULE PO ×2 (08:49→20:32)
[2018-01-07 08:58] LABS: Fibrinogen 780 mg/dL (211-428)
[2018-01-07 09:06] LABS: Neutrophils Absolute Manual 3512 /uL (3000-5900); Nucleated Red Blood Cells 1 #/Diff; RBC Morphology Normal Morphology; Total Cells Counted 100
[2018-01-07 09:18] LABS: Alanine Aminotransferase 24 IU/L (9-52); Albumin 3.8 g/dL (3.5-5.0); Albumin Globulin Ratio 1.2 (1.0-2.8); Alkaline Phosphatase 101 U/L (38-126); Aspartate Aminotransferase 48 IU/L (14-36); BUN Creatinine Ratio 21.4 (6-22); Bilirubin Total 1.4 mg/dL (0.2-1.3); Bilirubin Unconjugated 0.9 mg/dL (0.0-1.1); Blood Urea Nitrogen 15 mg/dL (7-17); Calcium 9.5 mg/dL (8.4-10.2); Carbon Dioxide 33 mmol/L (22-32); Chloride 100 mmol/L (98-107); Estimated Glomerular Filt Rate > 60.0 mL/min (>60); Globulin 3.3 g/dL (1.7-4.1); Glucose 124 mg/dL (80-110); HEMOLYSIS < 15 (0-50); Potassium 4.4 mmol/L (3.4-5.1); Sodium 139 mmol/L (137-145); Total Protein 7.1 g/dL (6.3-8.2); Uric Acid 4.8 mg/dL (2.5-6.2)
[2018-01-07 09:33] LABS: Lactate Dehydrogenase 2991 U/L (313-618)
[2018-01-07] MEDS: levoFLOXacin 750 MG/150 ML PIGGYBACK 100 MG IV (12:15)
[2018-01-07 15:19] LABS: Hematocrit 25.4 % (36-46); Hemoglobin 8.4 g/dL (12.0-16.0); Mean Corpuscular Hemoglobin 29.4 PG (26-34); Platelet Count 38 X10^3/uL (150-400); Red Blood Cell Count 2.86 X10^6/uL (4.0-5.2)
--- NOTE | 2018-01-07 15:19 | CM.DPC ---
DCP: continued: case received and discussed in Care Team morning meeting. Dr. De La Garza reports that oncology physician is recommending pt to go higher level of care for oncology treatment not available here at this time. He is working with RN coordinator Caroline to find appropriate facility with an available bed and says that pt and her advocates do agree with this plan. P: transfer process is continuing.
[2018-01-07 15:22] LABS: White Blood Cell Count 83.9 X10^3/uL (4.5-11.0)
[2018-01-07 15:23] LABS: Add Manual Diff / Slide Review YES
[2018-01-07] MEDS: SODIUM CHLORIDE 0.9% 1,000 ML 42 ML IV (15:35)
[2018-01-07 17:15] LABS: Anisocytosis 2+; Neutrophils Absolute Manual 0 /uL (3000-5900); Total Cells Counted 100
[2018-01-07 17:16] LABS: Hypochromasia 2+; Smudge Cells 1+
--- NOTE | 2018-01-07 20:44 | PM.PN.1 ---
Subjective Date Patient Seen: 01/07/18 Time Patient Seen: 08:44 Interval history: ADMITTED FROM ONCOLOGY CLINIC FOR COUGH AND AND HEMOPTYSIS SHE HAS UNDERLYING CA OF THE BREAST DIAGNOSED 2016 IS ON HORMONE THERAPY WORKUP HERE REVEALED A WHITE COUNT OF [id number] AT TIME OF ADMISSION PERIPHERAL SMEAR SHOWED ABNORMALITIES FLOW CYTOMETRY WAS DONE DR. DIAZ OF ONCOLOGY CALLED ME LAST NIGHT WITH THE PRESUMPTIVE DIAGNOSIS OF ACUTE MYELOID LEUKEMIA AND THEN WANTED ME TO ARRANGE FOR A TRANSFER TO HIGHER LEVEL OF CARE AT TERTIARY CENTER FOR THE MANAGEMENT OF THE ACUTE LEUKEMIA S FIBRINOGEN LEVEL WAS HIGH THE PT INR WAS ABNORMAL AT 3.2 SHE HAD BEEN ON WARFARIN FOR DVT BUT DISCONTINUED AT THE TIME OF ADMISSION THIS TIME I SPOKE TO DR. HORNE OF ONCOLOGY AT 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 Exam Vital Signs (past 8 hours): - 01/07/18 15:00 01/07/18 15:50 01/07/18 16:05 Temperature 99.7 F H 98.3 F Pulse Rate 97 H Respiratory Rate 18 Blood Pressure 117/68 Pulse Oximetry 95 94 01/07/18 20:00 Temperature 98.3 F Pulse Rate 110 H Respiratory Rate 18 Blood Pressure 123/68 H Pulse Oximetry 93 Oxygen Delivery Method Nasal Cannula Oxygen Flow Rate 4 Const General: cooperative and healthy appearing [facility] Head: normal to inspection, normocephalic and atraumatic Ears: hearing grossly normal bilaterally Nose: external nose normal Eyes General: appearance normal, both eyes and all related structures Eyelids: eyelids normal Conjunctivae: conjunctivae normal Sclera: sclerae normal Pupils: PERRL EOM: EOM intact bilaterally Neck Neck: normal visual inspection Thyroid: thyroid normal Resp Effort & Inspection: normal respiratory effort and able to speak in complete sentences Auscultation: bronchovesicular breath sounds Cardio Rate: tachycardic Rhythm: regular rhythm Heart Sounds: S1 normal and S2 normal GI Inspection: normal to inspection Palpation: soft Back/Spine/Pelvis Back: back tenderness Skin General: no rashes or lesions noted Neuro General: alert, awake and oriented x3 Cranial Nerves: CN's II-XI intact bilaterally Cognition: normal cognition Speech: speech normal Motor: muscle tone normal throughout Extrem General: normal to inspection Psych Appearance: grossly normal Speech and Movement: speech and movement normal Mood: congruent mood Affect: normal affect Attitude: cooperative Thought Process: normal Thought Content: normal Judgment: judgment good Objective Labs Result Diagrams: 01/07/18 14:26 01/07/18 07:51 Labs: Laboratory Results - last 24 hr 01/07/18 01/07/18 01/07/18 07:51 07:51 07:51 WBC 87.8 H* RBC 3.15 L Hgb 9.2 L Hct 27.9 L MCV 88.7 MCH 29.1 MCHC 32.8 RDW 19.5 H Plt Count 40 L Neut % (Auto) Not Reportable Lymph % (Auto) Not Reportable [place] % (Auto) Not Reportable Eos % (Auto) Not Reportable Baso % (Auto) Not Reportable Neut # (Auto) Total Counted 100 Seg Neutrophils % 4.0 L Lymphocytes % (Manual) 33.0 Atypical Lymphs % 61.0 H Monocytes % (Manual) 2.0 Metamyelocytes % Myelocytes % Blast Cells % Neutrophils # (Manual) 3512 Nucleated RBCs 1 H Smudge Cells RBC Morphology Normal morphology Hypochromasia Anisocytosis PT 35.3 H D INR 3.2 H APTT 31 D Fibrinogen 780 H* Sodium 139 Potassium 4.4 Chloride 100 Carbon Dioxide 33 H BUN 15 Creatinine 0.70 Estimated GFR > 60.0 BUN/Creatinine Ratio 21.4 Glucose 124 H Uric Acid 4.8 Calcium 9.5 Total Bilirubin 1.4 H Conjugated Bilirubin 0.0 Unconjugated Bilirubin 0.9 AST 48 H ALT 24 Alkaline Phosphatase 101 Lactate Dehydrogenase 2991 H Total Protein 7.1 Albumin 3.8 Globulin 3.3 Albumin/Globulin Ratio 1.2 01/07/18 14:26 WBC 83.9 H* RBC 2.86 L Hgb 8.4 L Hct 25.4 L MCV 89.0 MCH 29.4 MCHC 33.0 RDW 20.0 H Plt Count 38 L Neut % (Auto) Motor Bike Mechanic Lymph % (Auto) Motor Bike Mechanic [place] % (Auto) Motor Bike Mechanic Eos % (Auto) Motor Bike Mechanic Baso % (Auto) Motor Bike Mechanic Neut # (Auto) Motor Bike Mechanic Total Counted 100 Seg Neutrophils % Lymphocytes % (Manual) 85.0 H Atypical Lymphs % Monocytes % (Manual) 4.0 Metamyelocytes % 1.0 H Myelocytes % 9.0 H Blast Cells % 1.0 H Neutrophils # (Manual) 0 L Nucleated RBCs Smudge Cells 1+ H RBC Morphology Not Reportable Hypochromasia 2+ H Anisocytosis 2+ H PT INR APTT Fibrinogen Sodium Potassium Chloride Carbon Dioxide BUN Creatinine Estimated GFR BUN/Creatinine Ratio Glucose Uric Acid Calcium Total Bilirubin Conjugated Bilirubin Unconjugated Bilirubin AST ALT Alkaline Phosphatase Lactate Dehydrogenase Total Protein Albumin Globulin Albumin/Globulin Ratio Assessment & Plan Plan: Assessment/Plan Narrative: HISTORY OF METASTATIC CA OF THE BREAST AND NOW HAS SOME NORMAL HEMATOLOGY WITH VERY HIGH WBC LOW PLATELETS AND NORMAL INR NORMAL TO HIGH FIBRINOGEN PERIPHERAL SMEAR WAS ABNORMAL LEADING TO AND FLOW CYTOMETRY STUDY WHICH APPARENTLY IS ABNORMAL AND DR. DIAZ. THE ONCOLOGIST CALL ME WITH THEM THE POSSIBILITY OF HER PRO MYELOCYTIC LEUKEMIA AND THE NEED FOR HER TO BE TRANSFERRED TO A TERTIARY CARE CENTER WE ARE AWAITING TRANSFER TO [facility] Time Spent With Patient Time with patient: 25 - 35 minutes Quality VTE Deep Vein Thrombosis/Pulmonary Embolism Present on Admission: No
--- NOTE | 2018-01-07 20:52 | P.PN_ITS ---
Subjective Date Patient Seen: 01/07/18 Time Patient Seen: 08:44 Interval history: ADMITTED FROM ONCOLOGY CLINIC FOR COUGH AND AND HEMOPTYSIS SHE HAS UNDERLYING CA OF THE BREAST DIAGNOSED 2016 IS ON HORMONE THERAPY WORKUP HERE REVEALED A WHITE COUNT OF [id number] AT TIME OF ADMISSION PERIPHERAL SMEAR SHOWED ABNORMALITIES FLOW CYTOMETRY WAS DONE DR. DIAZ OF ONCOLOGY CALLED ME LAST NIGHT WITH THE PRESUMPTIVE DIAGNOSIS OF ACUTE MYELOID LEUKEMIA AND THEN WANTED ME TO ARRANGE FOR A TRANSFER TO HIGHER LEVEL OF CARE AT TERTIARY CENTER FOR THE MANAGEMENT OF THE ACUTE LEUKEMIA S FIBRINOGEN LEVEL WAS HIGH THE PT INR WAS ABNORMAL AT 3.2 SHE HAD BEEN ON WARFARIN FOR DVT BUT DISCONTINUED AT THE TIME OF ADMISSION THIS TIME I SPOKE TO DR. 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 Exam Vital Signs (past 8 hours): - 01/07/18 15:00 01/07/18 15:50 01/07/18 16:05 Temperature 99.7 F H 98.3 F Pulse Rate 97 H Respiratory Rate 18 Blood Pressure 117/68 Pulse Oximetry 95 94 01/07/18 20:00 Temperature 98.3 F Pulse Rate 110 H Respiratory Rate 18 Blood Pressure 123/68 H Pulse Oximetry 93 Oxygen Delivery Method Nasal Cannula Oxygen Flow Rate 4 Const General: cooperative and healthy appearing [facility] Head: normal to inspection, normocephalic and atraumatic Ears: hearing grossly normal bilaterally Nose: external nose normal Eyes General: appearance normal, both eyes and all related structures Eyelids: eyelids normal Conjunctivae: conjunctivae normal Sclera: sclerae normal Pupils: PERRL EOM: EOM intact bilaterally Neck Neck: normal visual inspection Thyroid: thyroid normal Resp Effort & Inspection: normal respiratory effort and able to speak in complete sentences Auscultation: bronchovesicular breath sounds Cardio Rate: tachycardic Rhythm: regular rhythm Heart Sounds: S1 normal and S2 normal GI Inspection: normal to inspection Palpation: soft Back/Spine/Pelvis Back: back tenderness Skin General: no rashes or lesions noted Neuro General: alert, awake and oriented x3 Cranial Nerves: CN's II-XI intact bilaterally Cognition: normal cognition Speech: speech normal Motor: muscle tone normal throughout Extrem General: normal to inspection Psych Appearance: grossly normal Speech and Movement: speech and movement normal Mood: congruent mood Affect: normal affect Attitude: cooperative Thought Process: normal Thought Content: normal Judgment: judgment good Objective Labs Result Diagrams: 01/07/18 14:26 01/07/18 07:51 Labs: Laboratory Results - last 24 hr 01/07/18 01/07/18 01/07/18 07:51 07:51 07:51 WBC 87.8 H* RBC 3.15 L Hgb 9.2 L Hct 27.9 L MCV 88.7 MCH 29.1 MCHC 32.8 RDW 19.5 H Plt Count 40 L Neut % (Auto) Not Reportable Lymph % (Auto) Not Reportable [place] % (Auto) Not Reportable Eos % (Auto) Not Reportable Baso % (Auto) Not Reportable Neut # (Auto) Total Counted 100 Seg Neutrophils % 4.0 L Lymphocytes % (Manual) 33.0 Atypical Lymphs % 61.0 H Monocytes % (Manual) 2.0 Metamyelocytes % Myelocytes % Blast Cells % Neutrophils # (Manual) 3512 Nucleated RBCs 1 H Smudge Cells RBC Morphology Normal morphology Hypochromasia Anisocytosis PT 35.3 H D INR 3.2 H APTT 31 D Fibrinogen 780 H* Sodium 139 Potassium 4.4 Chloride 100 Carbon Dioxide 33 H BUN 15 Creatinine 0.70 Estimated GFR > 60.0 BUN/Creatinine Ratio 21.4 Glucose 124 H Uric Acid 4.8 Calcium 9.5 Total Bilirubin 1.4 H Conjugated Bilirubin 0.0 Unconjugated Bilirubin 0.9 AST 48 H ALT 24 Alkaline Phosphatase 101 Lactate Dehydrogenase 2991 H Total Protein 7.1 Albumin 3.8 Globulin 3.3 Albumin/Globulin Ratio 1.2 01/07/18 14:26 WBC 83.9 H* RBC 2.86 L Hgb 8.4 L Hct 25.4 L MCV 89.0 MCH 29.4 MCHC 33.0 RDW 20.0 H Plt Count 38 L Neut % (Auto) Printed Circuit [employer] Panels Deburrer Lymph % (Auto) Printed Circuit [employer] Panels Deburrer [place] % (Auto) Printed Circuit [employer] Panels Deburrer Eos % (Auto) Printed Circuit [employer] Panels Deburrer Baso % (Auto) Printed Circuit [employer] Panels Deburrer Neut # (Auto) Printed Circuit Board Panels Deburrer Total Counted 100 Seg Neutrophils % Lymphocytes % (Manual) 85.0 H Atypical Lymphs % Monocytes % (Manual) 4.0 Metamyelocytes % 1.0 H Myelocytes % 9.0 H Blast Cells % 1.0 H Neutrophils # (Manual) 0 L Nucleated RBCs Smudge Cells 1+ H RBC Morphology Not Reportable Hypochromasia 2+ H Anisocytosis 2+ H PT INR APTT Fibrinogen Sodium Potassium Chloride Carbon Dioxide BUN Creatinine Estimated GFR BUN/Creatinine Ratio Glucose Uric Acid Calcium Total Bilirubin Conjugated Bilirubin Unconjugated Bilirubin AST ALT Alkaline Phosphatase Lactate Dehydrogenase Total Protein Albumin Globulin Albumin/Globulin Ratio Assessment & Plan Plan: Assessment/Plan Narrative: HISTORY OF METASTATIC CA OF THE BREAST AND NOW HAS SOME NORMAL HEMATOLOGY WITH VERY HIGH WBC LOW PLATELETS AND NORMAL INR NORMAL TO HIGH FIBRINOGEN PERIPHERAL SMEAR WAS ABNORMAL LEADING TO AND FLOW CYTOMETRY STUDY WHICH APPARENTLY IS ABNORMAL AND DR. DIAZ. THE ONCOLOGIST CALL ME WITH THEM THE POSSIBILITY OF HER PRO MYELOCYTIC LEUKEMIA AND THE NEED FOR HER TO BE TRANSFERRED TO A TERTIARY CARE CENTER WE ARE AWAITING TRANSFER TO [facility] Time Spent With Patient Time with patient: 25 - 35 minutes Quality VTE Deep Vein Thrombosis/Pulmonary Embolism Present on Admission: No
--- NOTE | 2018-01-07 20:55 | PM.DS.1 ---
History of Present Illness Chief complaint: SEPSIS, RESP FAILURE Discharge Providers Date of admission: 01/05/18 11:56 Primary care physician: Aliya Ventura MD Consults: 01/06/18 10:42 Consult to Oncology Routine Comment: Consulting Provider: Truman Dunlap Reason for consultation: Pt known to Oncology Discharge provider: Marietta Vargas MD Summary Discharge Diagnosis: ACUTE MYELOID LEUKEMIA Hospital Course: THIS VERY PLEASANT LADY WAS ADMITTED FROM ONCOLOGY CLINIC FOR HER SHORTNESS OF BREATH COUGH AND SOME HEMOPTYSIS SHE HAS BEEN SEEN THERE FOR FOLLOW-UP OF HER CARCINOMA OF THE BREAST WITH METASTASIS TO BONE AND LUNGS AT THE TIME OF ADMISSION ARE WHITE COUNT WAS [id number] AND THE PLATELETS ARE 10 SHE WAS TREATED POSSIBLE PNEUMONIA WITH ANTIBIOTICS RECEIVED PLATELET TRANSFUSION WELL PACKED RED BLOOD CELLS SUBSEQUENTLY A PERIPHERAL SMEAR SHOWED ABNORMALITY THAT PROMPTED FLOW CYTOMETRY STUDY DR. TOLD ME THAT THE OXYGEN STUDY OF THE PORTAL TAKE TO 3 DAYS BUT HE WAS FAIRLY SUSPICIOUS OF AN ACUTE MYELOID LEUKEMIA EVEN POSSIBLY A PROMYELOCYTIC LEUKEMIA AND THAT THE PATIENT NEEDED TO BE TRANSFERRED TO TERTIARY CARE CENTER SO WE DID SPEAK TO DR. HORNE AT [facility] AND THEY HAVE AGREED TO ADMIT HER FOR FURTHER MANAGEMENT Status at Discharge Cognitive/behavioral status at discharge: NORMAL Time Spent with Patient Greater than 30 minutes Exam Vital Signs (past 8 hours): - 01/07/18 15:00 01/07/18 15:50 01/07/18 16:05 Temperature 99.7 F H 98.3 F Pulse Rate 97 H Respiratory Rate 18 Blood Pressure 117/68 Pulse Oximetry 95 94 01/07/18 20:00 Temperature 98.3 F Pulse Rate 110 H Respiratory Rate 18 Blood Pressure 123/68 H Pulse Oximetry 93 Oxygen Delivery Method Nasal Cannula Oxygen Flow Rate 4 Narrative Exam Narrative: AN EXAM IN THE PROGRESS NOTE OF TODAY Objective Labs Result Diagrams: 01/07/18 14:26 01/07/18 07:51 Labs: Laboratory Results - last 24 hr 01/07/18 01/07/18 01/07/18 07:51 07:51 07:51 WBC 87.8 H* RBC 3.15 L Hgb 9.2 L Hct 27.9 L MCV 88.7 MCH 29.1 MCHC 32.8 RDW 19.5 H Plt Count 40 L Neut % (Auto) Not Reportable Lymph % (Auto) Not Reportable [place] % (Auto) Not Reportable Eos % (Auto) Not Reportable Baso % (Auto) Not Reportable Neut # (Auto) Total Counted 100 Seg Neutrophils % 4.0 L Lymphocytes % (Manual) 33.0 Atypical Lymphs % 61.0 H Monocytes % (Manual) 2.0 Metamyelocytes % Myelocytes % Blast Cells % Neutrophils # (Manual) 3512 Nucleated RBCs 1 H Smudge Cells RBC Morphology Normal morphology Hypochromasia Anisocytosis PT 35.3 H D INR 3.2 H APTT 31 D Fibrinogen 780 H* Sodium 139 Potassium 4.4 Chloride 100 Carbon Dioxide 33 H BUN 15 Creatinine 0.70 Estimated GFR > 60.0 BUN/Creatinine Ratio 21.4 Glucose 124 H Uric Acid 4.8 Calcium 9.5 Total Bilirubin 1.4 H Conjugated Bilirubin 0.0 Unconjugated Bilirubin 0.9 AST 48 H ALT 24 Alkaline Phosphatase 101 Lactate Dehydrogenase 2991 H Total Protein 7.1 Albumin 3.8 Globulin 3.3 Albumin/Globulin Ratio 1.2 01/07/18 14:26 WBC 83.9 H* RBC 2.86 L Hgb 8.4 L Hct 25.4 L MCV 89.0 MCH 29.4 MCHC 33.0 RDW 20.0 H Plt Count 38 L Neut % (Auto) Greaser Operator Lymph % (Auto) Greaser Operator [place] % (Auto) Greaser Operator Eos % (Auto) Greaser Operator Baso % (Auto) Greaser Operator Neut # (Auto) Greaser Operator Total Counted 100 Seg Neutrophils % Lymphocytes % (Manual) 85.0 H Atypical Lymphs % Monocytes % (Manual) 4.0 Metamyelocytes % 1.0 H Myelocytes % 9.0 H Blast Cells % 1.0 H Neutrophils # (Manual) 0 L Nucleated RBCs Smudge Cells 1+ H RBC Morphology Not Reportable Hypochromasia 2+ H Anisocytosis 2+ H PT INR APTT Fibrinogen Sodium Potassium Chloride Carbon Dioxide BUN Creatinine Estimated GFR BUN/Creatinine Ratio Glucose Uric Acid Calcium Total Bilirubin Conjugated Bilirubin Unconjugated Bilirubin AST ALT Alkaline Phosphatase Lactate Dehydrogenase Total Protein Albumin Globulin Albumin/Globulin Ratio Discharge Plan Discharge Plan Patient Disposition: [facility] Other facility: [facility] Under care of provider: Dr Horne Hematology Oncology Discharge comment: Need Higher Level Care Risks of Not transferring are acute complications of Acute Leukemia Bleeding DIC Leukostasis syndrome Discharge Med Rec/Prescriptions Prescriptions: Discontinued cholecalciferol (vitamin D3) [Vitamin D3] 1,000 UNIT tablet 1,000 unit PO QDAY Qty: 0 RF: 0 biotin 1 MG capsule 1 mg PO QAM Qty: 0 RF: 0 letrozole [Femara] 2.5 MG tablet 2.5 mg PO QDAY Qty: 90 RF: 3 lorazepam 0.5 MG tablet 1 mg PO BID PRN (Reason: Anxiety) RF: 0 palbociclib [Ibrance] 100 mg Capsule 100 mg PO DAILY RF: 0 polyethylene glycol 3350 [Miralax] 119 GM powder 17 gm PO QDAYP PRN (Reason: Constipation) Qty: 120 RF: 0 oxycodone-acetaminophen [Percocet] 10 MG/325 MG tablet 1 tab PO Q6HP PRN (Reason: Pain (Scale Score 7-10)) Qty: 60 RF: 0 morphine [MS Contin] 15 MG tablet extended release 15 mg PO BID Qty: 60 RF: 0 warfarin [Coumadin] 5 MG tablet 5 mg PO DAILY RF: 0 Provider Discharge Instructions Diet: Diet as Tolerated Discharge Data Primary Care Provider: Aliya Ventura Attending Provider: Fernando Vargas Admit Date/Time: 01/05/18 11:56 Quality VTE Deep Vein Thrombosis/Pulmonary Embolism Present on Admission: No
== END 2018-01-07 21:30 | disposition short-term general hospital (02) | DRG 834 ==
LOC: ICU 14:55 → AC 01-06 10:34
PROVIDERS: Admitting Provider Internal Medicine; PCP Family Medicine; Visit Provider Internal Medicine
DX: C92.00 Acute myeloblastic leukemia, not having achieved remission (principal); J18.9 Pneumonia, unspecified organism; Z68.43 Body mass index [BMI] 50.0-59.9, adult; C79.51 Secondary malignant neoplasm of bone; R04.2 Hemoptysis; C78.00 Secondary malignant neoplasm of unspecified lung; E66.01 Morbid (severe) obesity due to excess calories; D72.823 Leukemoid reaction; D69.6 Thrombocytopenia, unspecified; D64.9 Anemia, unspecified; C50.919 Malignant neoplasm of unspecified site of unspecified female breast; G89.3 Neoplasm related pain (acute) (chronic); M54.89 Other dorsalgia
CPT/HCPCS: 36415; 36430; 71046; 80048; 80053; 80076; 83615; 84550; 85025; 85384; 85610; 85730; 86850; 86900; 86901; 87040; 87797; 94760; 94762; 99215; P9016; J0692; J1170; J1956; J2270; P9035